=== PATIENT | male | born 1935 | race Caucasian/White ===

== ENCOUNTER 2019-04-22 14:02 | Emergency (ER) | payer MEDICARE, OTHER ==
--- NOTE | 2019-04-22 14:16 | UC ---
General HPI - HPI Summary HPI Summary: 83 yo male presents with complaints of a fever, body aches, and fatigue since yesterday. He tells me that he has had lyme disease four times in the past and that it also starts similar to this. He was bitten by a known tick to his right upper arm about a week ago and removed it within around 36 hours. He lives in [place], but is visiting for [facility]. He tells me that he took his temperature this morning and thinks it said 103F, but admits it had a hard time reading it and is not sure the exact number. He took tylenol around 1000 this morning. He denies headache, dizziness, cough, SOB, chest pain, abdominal pain, n/v/d/c, dysuria. No recent fall or injury. - History of Current Complaint Stated Complaint: FEVER Time Seen by Provider: 04/22/19 14:16 Hx Obtained From: Patient Onset/Duration: Sudden Onset Onset Severity: Mild Current Severity: Mild - Allergy/Home Medications Allergies/Adverse Reactions: Allergies Allergy/AdvReac Type Severity Reaction Status Date / Time No Known Allergies Allergy Verified 04/22/19 14:25 Home Medications: Home Medications Acetaminophen [Pain Relief] 1,000 mg PO ONCE PRN 04/22/19 [History Confirmed 06/03] Ared 2 1 tab PO DAILY 04/22/19 [History Confirmed 04/22/19] Calcium Carbonate [Calcium] 1 tab PO DAILY 04/22/19 [History Confirmed 04/22/19] Cyanocobalamin INJ * [Vitamin B12 INJ *] 1 unit IM MONTHLY 04/22/19 [History Confirmed 04/22/19] Levothyroxine Sodium [Synthroid] 200 mcg PO DAILY 04/22/19 [History Confirmed ] Radcliffe-3 Fatty Acids/Fish Oil [Fish Oil 1,000 mg Softgel] 1 tab PO DAILY [History Confirmed 04/22/19] Turmeric Root Extract [Ra Turmeric Extra Strengt] 1,053 mg PO DAILY 04/22/19 [ History Confirmed 04/22/19] PMH/Surg Hx/FS Hx/Imm Hx Endocrine History: Hypothyroidism Review of Systems All Other Systems Reviewed And Are Negative: Yes Constitutional: Positive: Fever, Fatigue, Other - Body aches Skin: Positive: Other - Tick bite Eyes: Positive: Negative ENT: Positive: Negative Respiratory: Positive: Negative Cardiovascular: Positive: Negative Gastrointestinal: Positive: Negative Genitourinary: Positive: Negative Motor: Positive: Negative Neurovascular: Positive: Negative Musculoskeletal: Positive: Negative Neurological: Positive: Negative Psychological: Positive: Negative Physical Exam - Summary Physical Exam Summary: GENERAL: NAD. WDWN. No pain distress. SKIN: No rashes, sores, lesions, or open wounds. At site of tick bite on right medial upper arm there is a healing faint erythematous 5mm area without warmth or sign of infection. HEENT: Head: AT/NC Eyes: EOM intact. Conjunctiva clear without inflammation or discharge. Ears: Hearing grossly normal. TMs intact, no bulging, erythema, or edema. Nose: Nasal mucosa pink and moist. NTTP maxillary and frontal sinus. Throat: Posterior oropharynx without exudates, erythema, or tonsillar enlargement. Uvula midline. NECK: Supple. Nontender. No lymphadenopathy. CHEST: CTAB. No r/r/w. No accessory muscle use. Breathing comfortably and in no distress. CV: RRR. Without m/r/g. Pulses intact. Cap refill <2seconds ABDOMEN: Soft. NTTP. No distention or guarding. No CVA tenderness. Bowel sounds present NEURO: Alert. PSYCH: Age appropriate behavior. Triage Information Reviewed: Yes Vital Signs: Vital Signs: Temp Pulse Resp BP Pulse Ox 99.3 F 82 18 122/63 99 04/22/19 14:17 04/22/19 14:17 04/22/19 14:17 04/22/19 14:17 04/22/19 14:17 Vital Signs Reviewed: Yes Course/Dx - Course Course Of Treatment: UA with 2+ blood and protein. Discussed obtaining U/S of kidneys today, but pt declined and wishes to f/u with his PCP back in [place]. CXR: IMPRESSION: HYPERINFLATION, CONSISTENT WITH COPD. NO ACTIVE CARDIOPULMONARY DISEASE. He is currently afebrile, well appearing, and exam and workup in the clinic are normal. Will draw for CBC, CMP, and lyme. I discussed with him that lyme is unlikely to cause these symptoms from a tick bite 1 week ago, but given his history of lyme with similar symptoms he is requesting treatment at this time. I strongly encouraged that he follow up with his PCP in [facility] on Thursday for a recheck. - Diagnoses Provider Diagnosis: Body aches, Tick bite Discharge - Sign-Out/Discharge Documenting (check all that apply): Patient Departure All imaging exams completed and their final reports reviewed: Yes - Discharge Plan Condition: Stable Disposition: HOME Prescriptions: DOXYcycline CAP(*) [DOXYcycline 100MG CAP(*)] 100 mg PO BID #28 cap Patient Education Materials: Lyme Disease (ED), Tick Bite (ED), Fever in Adults (ED) Referrals: No Primary Care Phys,NOPCP [Primary Care Provider] - Additional Instructions: If you develop a fever, shortness of breath, chest pain, new or worsening symptoms - please call your PCP or go to the ED immediately. Please follow up with your Primary Doctor on Thursday for a recheck of your symptoms. - Billing Disposition and Condition Condition: STABLE Disposition: Home
[2019-04-22 14:29] VITALS: BP 122/63
[2019-04-22 19:02] LABS: Albumin 3.8 g/dL (3.2-5.2); Calcium 8.5 mg/dL (8.6-10.3); Potassium 3.6 mmol/L (3.5-5.0); Total Bilirubin 0.8 mg/dL (0.2-1.0)
[2019-04-22 19:08] LABS: Albumin/Globulin Ratio 1.2 (1-3); BUN/Creatinine Ratio 15.8 (8-20); EGFR African American 70.3 (>60); EGFR Non-African American 58.1 (>60); Globulin 3.2 g/dL (2-4)
[2019-04-22 19:35] LABS: Hematocrit 45 % (42-52); Hemoglobin 15.5 g/dL (14.0-18.0); Mean Corpuscular HGB Conc 35 g/dL (31-36); Mean Corpuscular Hemoglobin 38 pg (27-31); Mean Corpuscular Volume 109 fL (80-94); Red Blood Count 4.09 10^6 /uL (4.18-5.48); Red Cell Distribution Width 13 % (10-15); White Blood Count 4.3 10^3/uL (3.5-10.8)
[2019-04-22 20:31] LABS: ABS Lymphocytes 0.4 10^3/ul (1.0-4.8); ABS Monocytes 0.1 10^3/ul (0-0.8); ABS Neutrophils 3.8 10^3/ul (1.5-7.7); Lymphocyte % 8.4 %; Nucleated Red Blood Cells % 0.3; Platelet Count Platelets clumped. 10^3/uL (150-450)
--- NOTE | 2019-04-23 08:39 | UC ---
- Progress Note Progress Note: Reviewed Blood work from 04/22/19. RN to call pt. ALT / AST both elevated (liver enzymes). Avoid alcohol, acetaminophen. Recommend follow up with PCP DALIA or go to the Emergency Department. Other - Platelets clumped, so result n/a. Course/Dx - Diagnoses Provider Diagnoses: Body aches, Tick bite Discharge - Sign-Out/Discharge Documenting (check all that apply): Post-Discharge Follow Up All imaging exams completed and their final reports reviewed: Yes - Discharge Plan Condition: Stable Disposition: HOME Prescriptions: DOXYcycline CAP(*) [DOXYcycline 100MG CAP(*)] 100 mg PO BID #28 cap Patient Education Materials: Lyme Disease (ED), Tick Bite (ED), Fever in Adults (ED) Referrals: No Primary Care Phys,NOPCP [Primary Care Provider] - Additional Instructions: If you develop a fever, shortness of breath, chest pain, new or worsening symptoms - please call your PCP or go to the ED immediately. Please follow up with your Primary Doctor on Thursday for a recheck of your symptoms. - Billing Disposition and Condition Condition: STABLE Disposition: Home
== END 2019-04-22 15:28 | disposition home or self-care (01) ==
LOC: UCEAST 14:02
DX: M79.10 Myalgia, unspecified site (principal); R53.83 Other fatigue; R50.9 Fever, unspecified; R94.5 Abnormal results of liver function studies; S40.861A Insect bite (nonvenomous) of right upper arm, initial encounter; W57.XXXA Bitten or stung by nonvenomous insect and other nonvenomous arthropods, initial encounter; Y92.9 Unspecified place or not applicable; E03.9 Hypothyroidism, unspecified
CPT/HCPCS: 36415; 71046; 80053; 81003; 85025; 86617; 86618; 99201; G0463